=== PATIENT | female | born 1975 | race Caucasian/White ===

== ENCOUNTER 2016-11-10 13:48 | Emergency (ER) | payer OTHER ==
[2016-11-10 14:01] VITALS: BP 122/78; PULSE 81; TEMP 98.1; BMI 24.6
[2016-11-10] MEDS ORDERED: KETOROLAC TROMETHAMINE 60 MG/2 ML VIAL IM ONE (14:23)
--- NOTE | 2016-11-10 14:30 | PDOC ---
History of Present Illness - General Chief Complaint: Pain Stated Complaint: RT HIP/GROIN PAIN Time Seen by Provider: 11/10/16 14:09 History Source: Patient - History of Present Illness Occurred: reports: last week Pain Location: reports: lower extremity Past History - Past Medical History Allergies/Adverse Reactions: Allergies Allergy/AdvReac Type Severity Reaction Status Date / Time No Known Allergies Allergy Verified 11/10/16 13:58 Home Medications: Ambulatory Orders Ibuprofen [Motrin -] 800 mg PO Q6H #30 tablet 11/10/16 Asthma: Yes - Immunization History Immunization Up to Date: Yes - Psycho/Social/Smoking Cessation Hx Suicidal Ideation: No Smoking History: Current every day smoker Number of Cigarettes Smoked Daily: 7 Information on smoking cessation initiated: No Hx Alcohol Use: No Drug/Substance Use Hx: No Review of Systems - Review of Systems Constitutional: No: Chills, Fever ABD/GI: No: Nausea, Vomiting : No: Flank Pain, Hematuria Musculoskeletal: Yes: Back Pain *Physical Exam - Vital Signs Last Vital Signs Temp Pulse Resp BP Pulse Ox 98.1 F 81 20 122/78 98 11/10/16 13:58 11/10/16 13:58 11/10/16 13:58 11/10/16 13:58 11/10/16 13:58 - Physical Exam General Appearance: Yes: Appropriately Dressed. No: Apparent Distress HEENT: positive: Normal Voice Neck: positive: Supple Respiratory/Chest: negative: Respiratory Distress Gastrointestinal/Abdominal: negative: Tender Musculoskeletal: negative: CVA Tenderness Extremity: positive: Normal Inspection, Tender (to lateral aspect of R hip) Integumentary: positive: Dry, Warm Neurologic: positive: Fully Oriented, Alert, Normal Mood/Affect ED Treatment Course - RADIOLOGY Radiology Studies Ordered: Category Date Time Status HIP & PELVIS-RIGHT [RAD] Stat Radiology 11/10/16 14:24 Ordered Medical Decision Making - Medical Decision Making 11/10/16 14:26 41-year-old female, denies any past medical history, here with right hip pain 1 week, radiates to groin, unable to describe but mostly constant and only worse with palpation. Not taking anything for pain. Denies any trauma. Patient states she had similar pain over 5 years ago and was sent for an MRI of her hip, which showed possible cyst to hip. States pain resolved then and has not recurred until now. Denies any dysuria, hematuria, flank pain, nausea, vomiting, fever or chills. No h/o renal stone. Well-appearing and in no apparent distress, with tenderness to palpation to localized area of lateral aspect of R hip, no swelling, CVA or abdominal tenderness. Possibly musculoskeletal versus bursitis. Pain control in ED. Anticipate f/u with PMD if pain persists 11/10/16 14:30 11/10/16 16:05 XR unremarkable. Pt reports improvement w/ meds. Dc w/ rx and pmd f/u 11/10/16 16:09 11/10/16 16:17 *DC/Admit/Observation/Transfer Diagnosis at time of Disposition: Hip pain Qualifiers: Laterality: right Qualified Code(s): M25.551 - Pain in right hip - Discharge Dispostion Disposition: HOME Condition at time of disposition: Improved - Prescriptions Prescriptions: Ibuprofen [Motrin -] 800 mg PO Q6H #30 tablet - Referrals Referrals: Caden Montiel PA [Primary Care Provider] - - Patient Instructions Additional Instructions: Please follow up with your PMD if pain persists
[2016-11-10 15:38] LABS: URINE APPEARANCE CLEAR; URINE BILIRUBIN NEGATIVE (NEGATIVE); URINE BLOOD 1+ (NEGATIVE); URINE COLOR YELLOW; URINE GLUCOSE (UA) NEGATIVE (NEGATIVE); URINE KETONE NEGATIVE (NEGATIVE); URINE LEUK ESTERASE NEGATIVE (NEGATIVE); URINE NITRITE NEGATIVE (NEGATIVE); URINE PROTEIN NEGATIVE (NEGATIVE); URINE UROBILINOGEN NEGATIVE E.U./dl (0.2-1.0)
[2016-11-10] MEDS ORDERED: KETOROLAC TROMETHAMINE 60 MG/2 ML VIAL ONE (15:40)
[2016-11-10 15:41] LABS: URINE MUCUS FEW; URINE RBC 1 /hpf (0-3); URINE WBC 1 /hpf (3-5)
== END 2016-11-10 16:18 | disposition home or self-care (01) ==
LOC: JERFT 13:48
PROC: 3E0233Z Introduction of Anti-inflammatory into Muscle, Percutaneous Approach (ICD-10-PCS; principal; 2016-11-10)
DX: M25.551 Pain in right hip (principal); F17.210 Nicotine dependence, cigarettes, uncomplicated
CPT/HCPCS: 73523-TC; 81003; 81015; 84703; 96372; 99281-25